=== PATIENT | female | born 1960 | race Caucasian/White ===

== ENCOUNTER 2021-06-03 11:31 | Inpatient (IN) ==
--- NOTE | 2021-06-03 11:57 | DR.SOBA ---
HPI Time Seen Time Seen by Provider: 06/03/21 11:51 Primary Care Physician Primary Care Physician: MARLON ARROYO, HPI Comment HPI Comment: PATIENT IS 60YR OLD MALE IN ER WITH INCREASING SOB AND LOW OXYGEN SATURATION TIMES 2 DAYS. Complaints Chief Complaint Doctors Comments: INCREASING SOB AND LOW OXYGEN SATURATION TIMES 2 DAYS. Chief Complaint:: " PT HAS COVID AND HAS HAD > SOB, AND LOW O2 SATS 45% AT NIGHT ,,BR Self Treatment fo Chief Complaint: IVERMENCTIN, Z-MAX, COVID-19 Coronavirus risk:travel/contact w/high risk person: No Has patient experienced Coronavirus symptoms: Yes Coronavirus symptoms experienced: Shortness of Breath Reviewed Nurses Notes Reviewed: Yes Source History Provided: Patient Mode of Arrival Mode of Arrival: Ambulatory Timing Onset of Chief Complaint: 06/01/21 Context Onset:: At Rest PE Risk Factors:: None History of:: None Currently on:: Neither Prehospital Care:: None Modifying Factors Worsens:: Exertion Improves:: Sitting Up Associated Signs and Symptoms Associated Signs and Symptoms: Cough PMH PMH Past Medical History: Yes Past Medical History: Hyperthyroidism Past Surgical History: No Family History History of Family Medical Conditions: No Social History Does patient currently use any type of tobacco product: No Have you used tobacco products in the last 12 months: No Type of Tobacco Use: None Does any household member use tobacco: No Alcohol Use: None Do you use any recreational Drugs:: No Lives Where: Home Travel Risk Coronavirus risk:travel/contact w/high risk person: No Has patient experienced Coronavirus symptoms: Yes Coronavirus symptoms experienced: Shortness of Breath Infectious screening In the last 2 months have you had wt loss of >10#?: NO Have you had fever, night sweats or hemotysis?: No Have you traveled outside the country in the last 6 months?: No Isolation: Droplet ROS Review of Systems Constitutional: No Symptoms Reported, See HPI and Fever Eyes: No Symptoms Reported and See HPI ENTM: No Symptoms Reported and See HPI Respiratoy: See HPI, Moist Cough and Short of Breath; negative Wheezing Cardiovascular: No Symptoms Reported and See HPI Gastrointestinal/Abdominal: No Symptoms Reported and See HPI Genitourinary: No Symptoms Reported and See HPI Neurological: No Symptoms Reported and See HPI Musculoskeletal: No Symptoms Reported and See HPI Integumentary: No Symptoms Reported and See HPI Hematologic/Lymphatic: No Symptoms Reported and See HPI Endocrine: No Symptoms Reported and See HPI Psychiatric: No Symptoms Reported and See HPI All Other Systems: Reviewed and Negative PE Vital Signs Vitals: Temperature 98.3 F Pulse Rate 79 Respiratory Rate 33 Blood Pressure 116/62 O2 Sat by Pulse Oximetry 92 General Limitations: No Limitations General Appearance: Alert and In No Apparent Distress Head Head Exam: Normal Inspection Eyes Eye exam: Normal Appearance ENT ENT Exam: Normal Exam Neck Neck Exam: Normal Inspection Chest Chest Inspection: Normal Inspection Respiratory Respiratory Exam: Normal Lung Sounds Bilat Respiratory Exam: Bilateral: Clear to Auscultation Cardiovascular Cardiovascular Exam: Regular Rate and Normal Rhythm Abdominal Exam Abdominal Exam: Normal Inspection, Normal Bowel Sounds and Soft Extremities Extremities Exam: Normal Inspection Back Back Exam: Normal Inspection Neurologic Neurological Exam: Alert and Oriented X3 Psychiatric Psychiatric Exam: Normal Affect and Normal Mood Skin Skin Exam: Warm, Dry, Intact and Normal Color ROR Labs Reviewed Result Diagrams: 06/03/21 12:15 06/03/21 12:15 Laboratory: WBC 3.7 X10^3/uL (3.6-10.0) 06/03/21 12:15 RBC 4.40 X10^6/uL (3.5-5.4) 06/03/21 12:15 Hgb 13.3 g/dL (12.0-16.0) 06/03/21 12:15 Hct 40.1 % (36.0-47.0) 06/03/21 12:15 MCV 91.2 fL (80.0-100.0) 06/03/21 12:15 MCH 30.3 pg (27.0-34.0) 06/03/21 12:15 MCHC 33.2 g/dL (33.0-35.0) 06/03/21 12:15 RDW 16.3 % (11.6-16.5) 06/03/21 12:15 Plt Count 218 X10^3/uL (150.0-450.0) 06/03/21 12:15 MPV 7.9 fL (7.4-11.0) 06/03/21 12:15 Neut % (Auto) 73.2 % (42.0-75.0) 06/03/21 12:15 Lymph % (Auto) 15.6 % (21.0-51.0) L 06/03/21 12:15 Valley % (Auto) 11.0 % (0.0-13.0) 06/03/21 12:15 Eos % (Auto) 0.0 % (0.9-2.9) L 06/03/21 12:15 Baso % (Auto) 0.2 % (0.2-1.0) 06/03/21 12:15 Neut # (Auto) 2.7 x10^3/uL (2.2-4.8) 06/03/21 12:15 Lymph # (Auto) 0.6 X10^3/uL (1.3-2.9) L 06/03/21 12:15 Valley # (Auto) 0.4 x10^3/uL (0.3-0.8) 06/03/21 12:15 Eos # (Auto) 0.0 x10^3/uL (0.0-0.2) 06/03/21 12:15 Baso # (Auto) 0.0 X10^3/uL (0.0-0.1) 06/03/21 12:15 Absolute Nucleated RBC 0.1 /100WBC 06/03/21 12:15 D-Dimer 0.67 ug/ml (0.0-0.57) H* 06/03/21 12:15 Sample Site Rb 06/03/21 12:00 ABG pH 7.390 (7.35-7.45) 06/03/21 12:00 ABG pCO2 62.0 mmHg (35.0-45.0) H* 06/03/21 12:00 ABG pO2 53.0 mmHg (80.0-100.0) L 06/03/21 12:00 ABG HCO3 37.5 mmol/L (22-26) H* 06/03/21 12:00 ABG O2 Saturation 87.0 % (90-100) L 06/03/21 12:00 ABG Base Excess 10.3 mmol/L (-2.0-2.0) H 06/03/21 12:00 Boubacar Test Na 06/03/21 12:00 A-a Gradient 19.0 mmHg 06/03/21 12:00 FiO2 21.0 06/03/21 12:00 Blood Gas Comments Pt [email or web address] 06/03/21 12:00 Sodium 143 mmol/L (136-145) 06/03/21 12:15 Corrected Sodium TNP 06/03/21 12:15 Potassium 4.4 mmol/L (3.5-5.1) 06/03/21 12:15 Chloride 102 mmol/L (98-107) 06/03/21 12:15 Carbon Dioxide 38.9 mmol/L (21-32) H 06/03/21 12:15 BUN 12 mg/dL (7-18) 06/03/21 12:15 Creatinine 0.85 mg/dL (0.55-1.02) 06/03/21 12:15 Est GFR (MDRD) Af Amer > 60 (>60) 06/03/21 12:15 Est GFR (MDRD) Non-Af > 60 (>60) 06/03/21 12:15 Glucose 97 mg/dL (65-99) 06/03/21 12:15 Calcium 8.5 mg/dL (8.5-10.1) 06/03/21 12:15 Corrected Calcium 9.3 mg/dL (8.5-10.1) 06/03/21 12:15 Ferritin 119 ng/mL (8-252) 06/03/21 12:15 Total Bilirubin 0.40 mg/dL (0.2-1.0) 06/03/21 12:15 AST 42 Units/L (15-37) H 06/03/21 12:15 ALT 70 Units/L (12-78) 06/03/21 12:15 Alkaline Phosphatase 95 Units/L (46-116) 06/03/21 12:15 Creatine Kinase 94 Units/L (26-192) 06/03/21 12:15 CK-MB (CK-2) 1.6 ng/mL (0-4.0) 06/03/21 12:15 CK/CKMB % Calc 1.7 % (<4) 06/03/21 12:15 Troponin I < 0.02 ng/mL (0-1.5) 06/03/21 12:15 C-Reactive Protein 16.60 mg/L (0-3.0) H 06/03/21 12:15 B-Natriuretic Peptide 108 pg/mL (0-79) H 06/03/21 12:15 Total Protein 6.7 g/dL (6.4-8.2) 06/03/21 12:15 Albumin 3.0 g/dL (3.4-5.0) L 06/03/21 12:15 Globulin 3.7 g/dL (2.5-4.5) 06/03/21 12:15 Albumin/Globulin Ratio 0.8 Ratio (1.1-2.1) L 06/03/21 12:15 SARS-CoV-2 (PCR) Positive (NEGATIVE) A 06/03/21 14:43 Influenza Type A (PCR) Negative (NEGATIVE) 06/03/21 14:43 Influenza Type B (PCR) Negative (NEGATIVE) 06/03/21 14:43 RSV (PCR) Negative (NEGATIVE) 06/03/21 14:43 SARS CoV-2 RNA Rapid ABHIJIT Negative (NEGATIVE) 06/03/21 12:11 Opioid Opioid Risk Tool Age (Malcolm box if 16-45): No History of Preadolescent Sexual Abuse: No Total: 0 Total Score Risk Category: Low Risk Copyright: Jairon VERDUZCO predicting aberrant behaviors Instructions Forms: Precautions for COVID19 [facility] Social Distancing
[2021-06-03 12:09] LABS: ABG BASE EXCESS 10.3 mmol/L (-2.0-2.0)
[2021-06-03 12:10] LABS: ABG HCO3 37.5 mmol/L (22-26)
[2021-06-03 12:43] LABS: BASOPHILS % (AUTO) 0.2 % (0.2-1.0); HEMATOCRIT 40.1 % (36.0-47.0); HEMOGLOBIN 13.3 g/dL (12.0-16.0); LYMPHOCYTES # (AUTO) 0.6 X10^3/uL (1.3-2.9); LYMPHOCYTES % (AUTO) 15.6 % (21.0-51.0); MEAN CORPUSCULAR HEMOGLOBIN 30.3 pg (27.0-34.0); MEAN CORPUSCULAR HGB CONC 33.2 g/dL (33.0-35.0); MEAN CORPUSCULAR VOLUME 91.2 fL (80.0-100.0); MEAN PLATELET VOLUME 7.9 fL (7.4-11.0); MONOCYTES # (AUTO) 0.4 x10^3/uL (0.3-0.8); NEUTROPHILS # (AUTO) 2.7 x10^3/uL (2.2-4.8); NEUTROPHILS % (AUTO) 73.2 % (42.0-75.0); PLATELET COUNT 218 X10^3/uL (150.0-450.0); RED CELL DISTRIBUTION WIDTH 16.3 % (11.6-16.5); WHITE BLOOD COUNT 3.7 X10^3/uL (3.6-10.0)
--- NOTE | 2021-06-03 12:52 | RAD ---
HISTORYCOVID, shortness of breathSTUDYChest AP portableCOMPARISONNoneFINDINGSHeart is mildly enlarged. No congestive heart failure is noted. There are some emphysematous changes in the right upper lobe. Alveolar infiltrate is present in the right lung base most consistent with pneumonia. The remainder of the lung mike appear free of infiltrates. No pleural effusions are identified. Bony thorax is unremarkable.IMPRESSIONRight lower lobe pneumoniaCardiomegaly without congestive heart failureEmphysematous changes right lung apexElectronically signed by: JORGE KUMAR (Jun 03, 2021 12:49:58)
[2021-06-03 13:02] LABS: ALANINE AMINOTRANSFERASE 70 Units/L (12-78); ALKALINE PHOSPHATASE 95 Units/L (46-116); ASPARTATE AMINO TRANSFERASE 42 Units/L (15-37); BLOOD UREA NITROGEN 12 mg/dL (7-18); CALCIUM 8.5 mg/dL (8.5-10.1); CARBON DIOXIDE 38.9 mmol/L (21-32); CHLORIDE 102 mmol/L (98-107); CKMB % 1.7 % (<4); COR CA(FOR HYPOALB) 9.3 mg/dL (8.5-10.1); CREATINE KINASE 94 Units/L (26-192); CREATINE KINASE MB 1.6 ng/mL (0-4.0); CREATININE 0.85 mg/dL (0.55-1.02); SODIUM 143 mmol/L (136-145); TOTAL PROTEIN 6.7 g/dL (6.4-8.2); TROPONIN I < 0.02 ng/mL (0-1.5); eGFR NON BLACK RACES > 60 (>60)
[2021-06-03] MEDS ORDERED: DUONEB 0.5 MG/3 MG (3 mL) NEB ONE ×2 (14:39→15:01)
[2021-06-03] MEDS ORDERED: SOLU-Medrol 125 MG VIAL IVP ONE (14:39)
[2021-06-03] MEDS ORDERED: ZOSYN VIAL 3.375 GRAMS 3.375 G in NS 100 ML IV + SPIKE MINIBAG* 100 ML IV ONE (14:41)
[2021-06-03] MEDS ORDERED: ZOSYN VIAL 3.375 GRAMS IV ONE (14:51)
[2021-06-03] MEDS ORDERED: NS 100 ML IV + SPIKE MINIBAG* 100 ML IV ONE (14:52)
--- NOTE | 2021-06-03 16:45 | CT ---
CT angiogram chest with contrastIndication: Dyspnea and hypoxiaTECHNIQUEHelical images through the chest after IV contrast. Coronal and sagittal reformats provided. MIP images provided.COMPARISONNone availableFINDINGSLimited images through the upper abdomen show no acute abnormality. Review of bone windows demonstrate no acute osseous abnormalityChest: There patchy ground-glass opacities in the periphery of the lung, concerning for COVID-19 viral pneumonitis. COPD with a large right apical bulla is noted. No pneumothorax or effusion seen. There is more focal consolidation in the right middle lobe, possibly reflecting superimposed bacterial pneumonia. Chest wall soft tissues show no acute abnormality. Aortic arch and branch vessels show few calcifications.Pulmonary artery bolus timing is adequate without central or segmental pulmonary artery filling defect identified.IMPRESSION1. Pulmonary changes of viral pneumonitis, likely COVID-19.2. Pre-existing COPD, and also consolidation in the right middle lobe, possibly reflecting chronic change versus superimposed bacterial pneumonia3. No pulmonary embolusElectronically signed by: JULIO ZAFAR (Jun 03, 2021 16:42:49)
[2021-06-03] MEDS ORDERED: ACCUNEB 1.25 MG NEBULE NEB PRN (17:48)
[2021-06-03] MEDS ORDERED: HumuLIN R SUBCUT PRN (17:52)
[2021-06-03] MEDS ORDERED: PHARMACY CONSULT - IVERMECTIN XX SCH (18:00)
[2021-06-03] MEDS ORDERED: REMDESIVIR 200 MG in NS 250 ML IV 250 ML IV ONE (18:30)
[2021-06-03] MEDS ORDERED: BROVANA ONE (19:13)
[2021-06-03] MEDS ORDERED: PULMICORT NEB TX 0.5 MG NEB ONE (19:13)
[2021-06-03] MEDS: ACCUNEB 1.25 MG NEBULE NEB SCH (20:30)
[2021-06-03] MEDS: PULMICORT NEB TX 0.5 MG NEB SCH (20:30)
[2021-06-03] MEDS ORDERED: LOVENOX INJ 30 MG SYR SC SCH (21:00)
[2021-06-03] MEDS ORDERED: BROVANA IN SCH (21:00)
[2021-06-03] MEDS ORDERED: NS 1/2 1000 ML IV 1,000 ML IV ONE (21:01)
[2021-06-03] MEDS: NS 1/2 1000 ML IV 1,000 ML IV SCH (21:23)
[2021-06-03] MEDS: PEPCID TAB 20 MG PO SCH (21:24)
[2021-06-03] MEDS: MELATONIN PO SCH (21:24)
[2021-06-03] MEDS: LIPITOR TAB 80 MG PO SCH (21:24)
[2021-06-03] MEDS: TESSALON PERLES PO SCH (21:24)
[2021-06-03] MEDS: SINGULAIR TAB 10 MG PO SCH (21:24)
[2021-06-03] MEDS: SOLU-Medrol 40 MG VIAL IVP SCH (21:25)
[2021-06-03] MEDS: LEVAQUIN PREMIX IV 500 MG 500 MG/100 ML BAG IV SCH (21:26)
[2021-06-03] MEDS: PROTONIX TAB 40 MG PO SCH (21:26)
[2021-06-03] MEDS: ASCORBIC ACID INJ MULTI-DOSE VIAL 1,500 MG in NS 50 ML IV 50 ML IV SCH (21:26)
[2021-06-03] MEDS: THIAMINE HCL INJ IVP SCH (21:26)
[2021-06-03] MEDS: SNACK - Diabetic Appropriate PO SCH (21:27)
[2021-06-04] MEDS: ASCORBIC ACID INJ MULTI-DOSE VIAL 1,500 MG in NS 50 ML IV 50 ML IV SCH ×4 (02:02→20:50)
[2021-06-04] MEDS: TUSSIONEX PENNKINETIC SUSP PO PRN ×2 (02:02→18:24)
[2021-06-04] MEDS: TESSALON PERLES PO SCH ×3 (05:25→21:00)
[2021-06-04] MEDS: SOLU-Medrol 40 MG VIAL IVP SCH ×3 (05:26→21:00)
[2021-06-04 05:55] LABS: ABG BASE EXCESS 10.9 mmol/L (-2.0-2.0)
[2021-06-04 05:56] LABS: ABG ALLEN TEST POS; ABG HCO3 38.5 mmol/L (22-26)
[2021-06-04] MEDS: ACCUNEB 1.25 MG NEBULE NEB SCH ×3 (05:57→19:54)
[2021-06-04] MEDS: NS 1/2 1000 ML IV 1,000 ML IV SCH ×3 (06:20→20:51)
[2021-06-04 06:29] LABS: BASOPHILS % (AUTO) 0.3 % (0.2-1.0); HEMATOCRIT 38.5 % (36.0-47.0); HEMOGLOBIN 12.6 g/dL (12.0-16.0); LYMPHOCYTES # (AUTO) 0.4 X10^3/uL (1.3-2.9); LYMPHOCYTES % (AUTO) 11.7 % (21.0-51.0); MEAN CORPUSCULAR HGB CONC 32.9 g/dL (33.0-35.0); MEAN CORPUSCULAR VOLUME 91.4 fL (80.0-100.0); MEAN PLATELET VOLUME 7.9 fL (7.4-11.0); MONOCYTES # (AUTO) 0.2 x10^3/uL (0.3-0.8); MONOCYTES % (AUTO) 4.9 % (0.0-13.0); NEUTROPHILS # (AUTO) 2.7 x10^3/uL (2.2-4.8); NEUTROPHILS % (AUTO) 83.1 % (42.0-75.0); PLATELET COUNT 248 X10^3/uL (150.0-450.0); RED BLOOD COUNT 4.21 X10^6/uL (3.5-5.4); RED CELL DISTRIBUTION WIDTH 15.9 % (11.6-16.5); WHITE BLOOD COUNT 3.3 X10^3/uL (3.6-10.0)
[2021-06-04 06:50] LABS: ALANINE AMINOTRANSFERASE 65 Units/L (12-78); ALBUMIN 2.6 g/dL (3.4-5.0); ALKALINE PHOSPHATASE 84 Units/L (46-116); ASPARTATE AMINO TRANSFERASE 29 Units/L (15-37); BLOOD UREA NITROGEN 13 mg/dL (7-18); CALCIUM 8.3 mg/dL (8.5-10.1); CARBON DIOXIDE 36.5 mmol/L (21-32); CHLORIDE 102 mmol/L (98-107); COR CA(FOR HYPOALB) 9.4 mg/dL (8.5-10.1); COR NA(FOR HYPERGLY) 143 mmol/L (136-145); CREATININE 0.91 mg/dL (0.55-1.02); SODIUM 141 mmol/L (136-145); TOTAL PROTEIN 6.1 g/dL (6.4-8.2); eGFR NON BLACK RACES > 60 (>60)
--- NOTE | 2021-06-04 07:55 | RAD ---
HISTORYSOBSTUDYCHEST, 1 [id number]/07/2021FINDINGSAbnormal opacity in the right middle lobe could be pneumonia. This may have improved slightly since the prior study. Large bleed or bleb noted in the upper right lung.No pneumothorax or significant effusion.The heart size is magnified.Bones are unremarkable.IMPRESSION1. Improved right middle lobe pneumoniaElectronically signed by: Carlos Suarez (Jun 04, 2021 07:53:31)
[2021-06-04] MEDS: DIFLUCAN PO SCH (09:09)
[2021-06-04] MEDS: IVERMECTIN PO SCH (09:09)
[2021-06-04] MEDS: PROTONIX TAB 40 MG PO SCH ×2 (09:09→20:48)
[2021-06-04] MEDS: PEPCID TAB 20 MG PO SCH ×2 (09:09→20:49)
[2021-06-04] MEDS: LOVENOX INJ 40 MG SYR SC SCH ×2 (09:09→20:58)
[2021-06-04] MEDS: REMDESIVIR 100 MG in NS 250 ML IV 250 ML IV SCH (09:10)
[2021-06-04] MEDS: ZINC SULFATE PO SCH (09:11)
[2021-06-04] MEDS: ZyrTEC TAB 10 MG PO SCH (09:11)
[2021-06-04] MEDS: THIAMINE HCL INJ IVP SCH ×2 (09:11→20:48)
[2021-06-04] MEDS: VITAMIN D3 125 mcg (5,000 UNITS) PO SCH (09:11)
[2021-06-04] MEDS: PULMICORT NEB TX 0.5 MG NEB SCH ×2 (09:45→19:54)
[2021-06-04 11:36] VITALS: BMI 43.4
[2021-06-04] MEDS: ROBITUSSIN DM PO PRN (13:17)
--- NOTE | 2021-06-04 16:00 | DR.H&P ---
H&P - History & Physical for Day of: H&P Date: 06/03/21 - Chief Complaint Chief Complaint: COUGH, SOB, LOW OXYGEN SATURATIONS - History of Present Illness History of Present Illness: IS A 60 YEAR OLD WHITE FEMALE. SHE IS NOT KNOWN TO OUR PRACTICE. HER PCP IS MARLON ARROYO. SHE PRESENTED TO THE ER WITH COMPLAINTS OF A NON-PRODUCTIVE COUGH, SHORTNESS OF BREATH, AND LOW OXYGEN SATURATIONS. SHE REPORTS BEING COVID POSITIVE. PATIENT REPORTS THAT HER SATURATIONS DROPPED LOW 45% THROUGHOUT THE NIGHT. SHE HAS TAKEN IVERMECTIN AND A Z-PACK AT HOME WITHOUT IMPROVEMENT IN SYMPTOMS. HER PMH INCLUDES: HYPERTHYROIDISM. AUSCULTATION OF BILATERAL LUNG WATKINS REVEALED SCATTERED RHONCHI. ON ARRIVAL TO THE ER, VITALS WERE 98.3-70-20-75%-144/78. SHE WAS PLACED ON OXYGEN VIA NASAL CANNULA AT 2LPM. SATURATIONS INCREASED TO 98%. LABS WERE OBTAINED. ABNORMAL LAB VALUES INCLUDED THE FOLLOWING: CARBON DIXOIDE 38.9, AST 42, CRP 16.60, BNP 108, ALBUMIN 3.0. COVID-19 POSITIVE. AN ABG WAS OBTAINED AND REVEALED: PH 7.390, PC02 62, P02 53, HC03 37.5, 02 SAT 87, BASE EXCESS 10.3, A-A GRADIENT 19, FI02 21.0. BLOOD CULTURES WERE SET UP. CHEST XRAY WAS OBTAINED AND REVEALED: Right lower lobe pneumonia. Cardiomegaly without congestive heart failure. Emphysematous changes right lung apex. CHEST CTA OBTAINED AND REVEALED: 1. Pulmonary changes of viral pneumonitis, likely COVID-19. 2. Pre-existing COPD, and also consolidation in the right middle lobe, possibly reflecting chronic change versus superimposed bacterial pneumonia 3. No pulmonary embolus. EKG REVEALED: SINUS RHYTHM WITH HR 58. IN THE ER, SHE WAS GIVEN A DUONEB X 1, SOLU-MEDROL 125MG IV X 1, ZOSYN 3.375G IV X 1, REMDESIVIR 200MG IV X 1, LOVENOX 30MG SC X 1. SHE WAS ADMITTED TO THE HOSPITAL FOR FURTHER EVALUATION AND TREATMENT OF PNEUMONIA DUE TO COVID-19 AND HYPOXIA. SHE WAS STARTED ON NS AT 50 ML/HR, LEVAQUIN 500MG IV HS, REMDESIVIR 100MG IV DAILY, ASCORBIC ACID 1500MG IV Q6H, ALBUTEROL NEBS TID, PULMICORT NEBS BID, SOLU-MEDROL 80MG IV Q8H, LOVENOX 40MG SC Q12H, LIPITOR 80MG PO HS, TESSALON PERLES 200MG PO TID, CETIRIZINE 10MG PO DAILY, IVERMECTIN, DIFLUCAN 100MG PO DAILY, PEPCID 20MG PO BID, ROBITUSSIN DM 10ML PO QID PRN, HUMULIN R SLIDING SCALE, SINGULAIR 10MG PO HS, PROTONIX 40MG PO BID, THIAMINE 200MG IV BID, AND ZINC SULFATE 220MG PO BID. OTHERWISE, WE PLAN TO FOLLOW UP WITH AM LABS AND CHEST XRAY AND CONTINUE TO MONITOR. WE WILL ALSO OBTAIN AN ECHO. TIME SPENT ON CLINICAL ASSESSMENT, REVIEWING LABS AND IMAGING, DECISION MAKING, AND DOCUMENTATION GREATER THAN 75 MINUTES. - Past Medical History Past Medical History: Hyperthyroidism - Past Surgical History Surgical History: Other - Family History Family Medical History: Cancer - Social History Does patient currently use any type of tobacco product: Yes Have you used tobacco products in the last 12 months: Yes Type of Tobacco Use: Cigarettes How many years tobacco product used: 46 Does any household member use tobacco: Yes Alcohol Use: None Drug Use: None - Medications Home Medications: No Known Drug Allergies Allergy (Verified 06/03/21 11:36) CONTINUE taking the following medications albuterol sulfate 1 inh INHALATION PRN PRN 06/03/21 [History] alprazolam 0.5 mg PO BID PRN 06/03/21 [History] azithromycin 250 mg PO DAILY 06/03/21 [History] escitalopram oxalate 20 mg PO DAILY 06/03/21 [History] estradiol [Estrace] 1 mg PO DAILY 06/03/21 [History] furosemide 40 mg PO DAILY 06/03/21 [History] ibuprofen 800 mg PO PRN PRN 06/03/21 [History] levothyroxine 25 mcg PO DAILY 06/03/21 [History] meclizine 25 mg PO PRN PRN 06/03/21 [History] metformin 500 mg PO DAILY 06/03/21 [History] montelukast 10 mg PO DAILY 06/03/21 [History] omeprazole 40 mg PO DAILY 06/03/21 [History] ondansetron HCl 4 mg PO PRN PRN 06/03/21 [History] ondansetron HCl 4 mg PO Q6H 06/03/21 [History] phentermine 37.5 mg PO DAILY 06/03/21 [History] potassium chloride 20 meq PO DAILY 06/03/21 [History] - Review of Systems Constitutional: Weakness Eyes: No Symptoms Reported ENT: No Symptoms Reported Respiratory: See HPI, Cough, Shortness of Breath, SOB with Excertion Cardiovascular: No Symptoms Reported Gastrointestinal: No Symptoms Reported Genitourinary: No Symptoms Reported Musculoskeletal: No Symptoms Reported Skin: No Symptoms Reported Neurological: Weakness - Physical Exam Vital Signs: Temperature 97.9 F Pulse Rate [Left Brachial] 76 Pulse Rate 75 Respiratory Rate 22 Blood Pressure [Left Arm] 128/68 Blood Pressure 116/62 O2 Sat by Pulse Oximetry 89 Oriented: Normal Eyes: Normal Ear: Normal Nose: Normal Throat: Normal Respiratory: Diminished Throughout Cardiovascular: Normal : Normal Auscultation: Bowel Sounds: Normal Palpation: Normal Tenderness: Normal Skin: Decreased Turgur Musculoskeletal: Normal Psychiatric: Normal Mood Description: Calm Affect: Normal Speech Pattern: Clear - Assessment/Plan (1) Pneumonia due to COVID-19 virus Status: Acute Plan: ADMIT, SUPPLEMENTAL OXYGEN, NS AT 50 ML/HR, LEVAQUIN 500MG IV HS, REMDESIVIR 100MG IV DAILY, ASCORBIC ACID 1500MG IV Q6H, ALBUTEROL NEBS TID, PULMICORT NEBS BID, SOLU-MEDROL 80MG IV Q8H, LOVENOX 40MG SC Q12H, LIPITOR 80MG PO HS, TESSALON PERLES 200MG PO TID, CETIRIZINE 10MG PO DAILY, IVERMECTIN, DIFLUCAN 100MG PO DAILY, PEPCID 20MG PO BID, ROBITUSSIN DM 10ML PO QID PRN, HUMULIN R SLIDING SCALE, SINGULAIR 10MG PO HS, PROTONIX 40MG PO BID, THIAMINE 200MG IV BID, AND ZINC SULFATE 220MG PO BID (2) Hypoxia Status: Acute - Allergies Allergies/Adverse Reactions: Allergies Allergy/AdvReac Type Severity Reaction Status Date / Time No Known Drug Allergies Allergy Verified 06/03/21 11:36
[2021-06-04] MEDS ORDERED: NS 1/2 1000 ML IV 1,000 ML IV ONE (17:24)
[2021-06-04] MEDS ORDERED: ZOFRAN TAB 4 MG PO PRN (17:41)
[2021-06-04] MEDS ORDERED: ANTIVERT TAB 25 MG PO PRN (17:41)
[2021-06-04] MEDS ORDERED: PATIENT'S HOME MEDICATION (Alprazolam 0.5 mg tablet) PO PRN (17:41)
[2021-06-04] MEDS ORDERED: GLUCOPHAGE ONE (17:51)
[2021-06-04] MEDS ORDERED: XANAX PO PRN (17:52)
[2021-06-04] MEDS: K-DUR TAB 20 MEQ PO SCH (17:54)
[2021-06-04] MEDS: SYNTHROID 25 mcg TAB PO SCH (17:54)
[2021-06-04] MEDS: ESTRACE PO SCH (17:54)
[2021-06-04] MEDS: GLUCOPHAGE PO SCH (17:54)
[2021-06-04] MEDS ORDERED: LEXAPRO ONE (17:55)
[2021-06-04] MEDS: LEXAPRO PO SCH (17:58)
[2021-06-04] MEDS: SINGULAIR TAB 10 MG PO SCH ×2 (20:48→20:49)
[2021-06-04] MEDS: LIPITOR TAB 80 MG PO SCH (20:48)
[2021-06-04] MEDS: MELATONIN PO SCH (20:48)
[2021-06-04] MEDS: LEVAQUIN PREMIX IV 500 MG 500 MG/100 ML BAG IV SCH (20:49)
[2021-06-04] MEDS: SNACK - Diabetic Appropriate PO SCH (20:51)
[2021-06-05] MEDS: ASCORBIC ACID INJ MULTI-DOSE VIAL 1,500 MG in NS 50 ML IV 50 ML IV SCH ×4 (02:14→20:14)
[2021-06-05] MEDS: TUSSIONEX PENNKINETIC SUSP PO PRN (03:56)
[2021-06-05] MEDS: SOLU-Medrol 40 MG VIAL IVP SCH ×3 (05:17→21:04)
[2021-06-05] MEDS: TESSALON PERLES PO SCH ×3 (05:18→21:04)
[2021-06-05] MEDS: ACCUNEB 1.25 MG NEBULE NEB SCH ×3 (05:30→20:09)
[2021-06-05 05:33] LABS: ABG BASE EXCESS 8.6 mmol/L (-2.0-2.0)
[2021-06-05 05:35] LABS: ABG ALLEN TEST POS; ABG HCO3 36.7 mmol/L (22-26)
[2021-06-05] MEDS ORDERED: NS 1/2 1000 ML IV 1,000 ML IV ONE ×2 (06:22→19:46)
[2021-06-05 06:25] LABS: BASOPHILS % (AUTO) 0.1 % (0.2-1.0); HEMATOCRIT 40.1 % (36.0-47.0); HEMOGLOBIN 13.4 g/dL (12.0-16.0); LYMPHOCYTES # (AUTO) 0.4 X10^3/uL (1.3-2.9); LYMPHOCYTES % (AUTO) 6.6 % (21.0-51.0); MEAN CORPUSCULAR HEMOGLOBIN 30.7 pg (27.0-34.0); MEAN CORPUSCULAR HGB CONC 33.4 g/dL (33.0-35.0); MEAN CORPUSCULAR VOLUME 91.7 fL (80.0-100.0); MEAN PLATELET VOLUME 7.9 fL (7.4-11.0); MONOCYTES # (AUTO) 0.2 x10^3/uL (0.3-0.8); MONOCYTES % (AUTO) 4.1 % (0.0-13.0); NEUTROPHILS # (AUTO) 5.4 x10^3/uL (2.2-4.8); NEUTROPHILS % (AUTO) 89.2 % (42.0-75.0); PLATELET COUNT 274 X10^3/uL (150.0-450.0); RED BLOOD COUNT 4.37 X10^6/uL (3.5-5.4); RED CELL DISTRIBUTION WIDTH 16.5 % (11.6-16.5)
[2021-06-05] MEDS: NS 1/2 1000 ML IV 1,000 ML IV SCH ×3 (06:28→23:15)
[2021-06-05 06:45] LABS: ALANINE AMINOTRANSFERASE 56 Units/L (12-78); ALBUMIN 2.9 g/dL (3.4-5.0); ALKALINE PHOSPHATASE 84 Units/L (46-116); ASPARTATE AMINO TRANSFERASE 17 Units/L (15-37); BLOOD UREA NITROGEN 20 mg/dL (7-18); CALCIUM 8.7 mg/dL (8.5-10.1); CARBON DIOXIDE 36.2 mmol/L (21-32); CHLORIDE 105 mmol/L (98-107); COR CA(FOR HYPOALB) 9.6 mg/dL (8.5-10.1); COR NA(FOR HYPERGLY) 145 mmol/L (136-145); CREATININE 1.06 mg/dL (0.55-1.02); SODIUM 143 mmol/L (136-145); TOTAL PROTEIN 6.4 g/dL (6.4-8.2); eGFR NON BLACK RACES 57 (>60)
[2021-06-05] MEDS ORDERED: LEXAPRO ONE (07:53)
[2021-06-05] MEDS ORDERED: GLUCOPHAGE ONE (07:53)
--- NOTE | 2021-06-05 08:05 | RAD ---
HISTORYSOBSTUDYCHEST, 1 [id number]/08/2021FINDINGSVague opacity in the right lung base is unchanged compatible with middle lobe pneumonia as seen on the CT 06/03/2021.Large bullae or bleb in the right upper lung.No pleural effusion or pneumothorax.Heart size is normal.Bones are unremarkable.IMPRESSION1. Unchanged pneumoniaElectronically signed by: Carlos Suarez (Jun 05, 2021 08:03:10)
[2021-06-05] MEDS: DIFLUCAN PO SCH (08:45)
[2021-06-05] MEDS: K-DUR TAB 20 MEQ PO SCH (08:55)
[2021-06-05] MEDS: ESTRACE PO SCH (08:55)
[2021-06-05] MEDS: GLUCOPHAGE PO SCH (08:55)
[2021-06-05] MEDS: IVERMECTIN PO SCH (08:55)
[2021-06-05] MEDS: PROTONIX TAB 40 MG PO SCH ×2 (08:56→20:15)
[2021-06-05] MEDS: LEXAPRO PO SCH (08:56)
[2021-06-05] MEDS: PEPCID TAB 20 MG PO SCH ×2 (08:56→20:14)
[2021-06-05] MEDS: LASIX PO SCH (08:56)
[2021-06-05] MEDS: SYNTHROID 25 mcg TAB PO SCH (08:57)
[2021-06-05] MEDS: ZINC SULFATE PO SCH (08:57)
[2021-06-05] MEDS: THIAMINE HCL INJ IVP SCH ×2 (08:57→20:15)
[2021-06-05] MEDS: ZyrTEC TAB 10 MG PO SCH (08:57)
[2021-06-05] MEDS: VITAMIN D3 125 mcg (5,000 UNITS) PO SCH (08:57)
[2021-06-05] MEDS: PULMICORT NEB TX 0.5 MG NEB SCH ×2 (09:05→20:09)
[2021-06-05] MEDS: LOVENOX INJ 40 MG SYR SC SCH ×2 (09:10→20:14)
[2021-06-05] MEDS: ROBITUSSIN DM PO PRN (09:26)
[2021-06-05] MEDS: REMDESIVIR 100 MG in NS 250 ML IV 250 ML IV SCH (09:33)
[2021-06-05] MEDS: MELATONIN PO SCH (20:14)
[2021-06-05] MEDS: LIPITOR TAB 80 MG PO SCH (20:14)
[2021-06-05] MEDS: LEVAQUIN PREMIX IV 500 MG 500 MG/100 ML BAG IV SCH (20:14)
[2021-06-05] MEDS: SINGULAIR TAB 10 MG PO SCH (20:15)
[2021-06-05] MEDS: SNACK - Diabetic Appropriate PO SCH (20:23)
[2021-06-06] MEDS: ASCORBIC ACID INJ MULTI-DOSE VIAL 1,500 MG in NS 50 ML IV 50 ML IV SCH ×4 (02:32→20:51)
[2021-06-06 05:31] LABS: ABG BASE EXCESS 13.6 mmol/L (-2.0-2.0)
[2021-06-06 05:32] LABS: ABG ALLEN TEST POS; ABG HCO3 40.5 mmol/L (22-26)
[2021-06-06] MEDS: SOLU-Medrol 40 MG VIAL IVP SCH ×3 (05:40→21:00)
[2021-06-06] MEDS: TESSALON PERLES PO SCH ×3 (05:40→21:03)
[2021-06-06 06:14] LABS: BASOPHILS % (AUTO) 0.1 % (0.2-1.0); HEMATOCRIT 37.3 % (36.0-47.0); HEMOGLOBIN 12.4 g/dL (12.0-16.0); LYMPHOCYTES # (AUTO) 0.4 X10^3/uL (1.3-2.9); LYMPHOCYTES % (AUTO) 5.8 % (21.0-51.0); MEAN CORPUSCULAR HEMOGLOBIN 30.3 pg (27.0-34.0); MEAN CORPUSCULAR HGB CONC 33.3 g/dL (33.0-35.0); MEAN CORPUSCULAR VOLUME 91.1 fL (80.0-100.0); MEAN PLATELET VOLUME 7.6 fL (7.4-11.0); MONOCYTES # (AUTO) 0.3 x10^3/uL (0.3-0.8); MONOCYTES % (AUTO) 4.7 % (0.0-13.0); NEUTROPHILS # (AUTO) 5.7 x10^3/uL (2.2-4.8); NEUTROPHILS % (AUTO) 89.4 % (42.0-75.0); PLATELET COUNT 264 X10^3/uL (150.0-450.0); RED BLOOD COUNT 4.09 X10^6/uL (3.5-5.4); RED CELL DISTRIBUTION WIDTH 16.2 % (11.6-16.5); WHITE BLOOD COUNT 6.4 X10^3/uL (3.6-10.0)
[2021-06-06 06:38] LABS: ALANINE AMINOTRANSFERASE 39 Units/L (12-78); ALBUMIN 2.6 g/dL (3.4-5.0); ALKALINE PHOSPHATASE 69 Units/L (46-116); ASPARTATE AMINO TRANSFERASE 12 Units/L (15-37); BLOOD UREA NITROGEN 21 mg/dL (7-18); CALCIUM 8.2 mg/dL (8.5-10.1); CARBON DIOXIDE 35.7 mmol/L (21-32); CHLORIDE 102 mmol/L (98-107); COR CA(FOR HYPOALB) 9.3 mg/dL (8.5-10.1); COR NA(FOR HYPERGLY) 144 mmol/L (136-145); CREATININE 1.04 mg/dL (0.55-1.02); SODIUM 140 mmol/L (136-145); TOTAL PROTEIN 5.7 g/dL (6.4-8.2); eGFR NON BLACK RACES 58 (>60)
[2021-06-06] MEDS: ACCUNEB 1.25 MG NEBULE NEB SCH ×3 (06:40→20:18)
--- NOTE | 2021-06-06 08:08 | RAD ---
HISTORYSOBSTUDYCHEST, 1 [id number]/09/2021FINDINGSThe subtle areas of ground-glass opacity representing bronchopneumonia seen on the CTA chest 06/03/2021 are not readily apparent by radiography.But the consolidation that was noted in the right middle lobe on the chest CT is identified. This could be atelectasis or pneumonia and has improved since yesterday.No pleural effusion or pneumothorax. Large bullae or bleb noted in the upper right chest, unchanged.The heart size is magnified.Bones are unremarkable.IMPRESSION1. Improved right middle lobe atelectasis or pneumoniaElectronically signed by: Carlos Suarez (Jun 06, 2021 08:05:57)
[2021-06-06] MEDS: PULMICORT NEB TX 0.5 MG NEB SCH ×2 (08:25→20:18)
[2021-06-06] MEDS ORDERED: LEXAPRO ONE (08:39)
[2021-06-06] MEDS ORDERED: GLUCOPHAGE ONE (08:39)
[2021-06-06] MEDS: DIFLUCAN PO SCH (09:41)
[2021-06-06] MEDS: ESTRACE PO SCH (09:42)
[2021-06-06] MEDS: K-DUR TAB 20 MEQ PO SCH (09:42)
[2021-06-06] MEDS: GLUCOPHAGE PO SCH (09:42)
[2021-06-06] MEDS: LASIX PO SCH (09:43)
[2021-06-06] MEDS: LEXAPRO PO SCH (09:44)
[2021-06-06] MEDS: IVERMECTIN PO SCH (09:44)
[2021-06-06] MEDS: LOVENOX INJ 40 MG SYR SC SCH ×2 (09:44→20:44)
[2021-06-06] MEDS: PROTONIX TAB 40 MG PO SCH ×2 (09:45→20:49)
[2021-06-06] MEDS: SYNTHROID 25 mcg TAB PO SCH (09:45)
[2021-06-06] MEDS: THIAMINE HCL INJ IVP SCH ×2 (09:45→20:49)
[2021-06-06] MEDS: PEPCID TAB 20 MG PO SCH ×2 (09:45→20:48)
[2021-06-06] MEDS: ZINC SULFATE PO SCH (09:46)
[2021-06-06] MEDS: VITAMIN D3 125 mcg (5,000 UNITS) PO SCH (09:46)
[2021-06-06] MEDS: ZyrTEC TAB 10 MG PO SCH (09:46)
[2021-06-06] MEDS: NS 1/2 1000 ML IV 1,000 ML IV SCH ×3 (11:11→13:37)
[2021-06-06] MEDS: REMDESIVIR 100 MG in NS 250 ML IV 250 ML IV SCH (11:12)
[2021-06-06] MEDS ORDERED: MILK OF MAGNESIA ONE (13:32)
[2021-06-06] MEDS ORDERED: COLACE CAP 100 MG PO ONE (13:32)
[2021-06-06] MEDS ORDERED: NS 1/2 1000 ML IV 1,000 ML IV ONE (13:33)
[2021-06-06] MEDS: COLACE CAP 100 MG PO SCH ×2 (13:39→20:49)
[2021-06-06] MEDS: MILK OF MAGNESIA PO SCH (13:40)
--- NOTE | 2021-06-06 18:35 | PCM.PROG ---
Progress Note - Progress Note for Day of Date of Exam: 06/05/21 - Subjective Subjective: MS. LOMAX WAS ADMITTED FOR TREATMENT OF COVID PNEUMONIA AND HYPOXIA. TODAY, SHE IS ALERT AND ORIENTED, LYING IN THE BED ON MORNING ROUNDS. SHE IS CURRENTLY OXYGEN VIA NASAL CANNULA AT 3 LITERS/MINUTE. SHE CONTINUES WITH COMPLAINTS OF SHORTNESS OF BREATH AND WEAKNESS TODAY. SHORTNESS OF BREATH AND COUGH SLIGHTLY INCREASED. HER SATURATIONS HAVE BEEN 90-94% THIS MORNING AND THROUGHOUT THE NIGHT. ON EXAMINATION, HEART IS REGULAR IN RATE AND RHYTHM. BILATERAL LUNGS ARE NOTED WITH DIMINISHED LUNG SOUNDS THROUGHOUT. ABDOMEN IS ROUND, SOFT, AND NON-TENDER WITH NORMAL BOWEL SOUNDS NOTED IN ALL QUADRANTS. HIS VITALS THIS MORNING ARE: 98.1-70-22-92%-124/62. LABS WERE OBTAINED. ABNORMAL LAB VALUES INCLUDE THE FOLLOWING: POTASSIUM 5.2, CARBON DIOXIDE 36.2, BUN 20, CREATININE 1.06, GLUCOSE 164, CRP 5.50, BNP 87.7, ALBUMIN 2.9. BLOOD CULTURES ARE PENDING. ABG REVEALED: PH 7.430, PC02 42, P02 49, HC03 27.9, 02 SAT 85, BASE EXCESS 3.2, A-A GRADIENT 562, FI02 93. BLOOD CULTURES ARE PENDING. A CHEST XRAY WAS OBTAINED AND REVEALED: 1. Unchanged Pneumonia. SHE IS CURRENTLY RECEIVING NS AT 50 ML/HR, LEVAQUIN 500MG IV HS, REMDESIVIR 100MG IV DAILY, ASCORBIC ACID 1500MG IV Q6H, ALBUTEROL NEBS TID, PULMICORT NEBS BID, SOLU-MEDROL 80MG IV Q8H, LOVENOX 40MG SC Q12H, LIPITOR 80MG PO HS, TESSALON PERLES 200MG PO TID, CETIRIZINE 10MG PO DAILY, IVERMECTIN, DIFLUCAN 100MG PO DAILY, PEPCID 20MG PO BID, ROBITUSSIN DM 10ML PO QID PRN, HUMULIN R SLIDING SCALE, SINGULAIR 10MG PO HS, PROTONIX 40MG PO BID, THIAMINE 200MG IV BID, AND ZINC SULFATE 220MG PO BID. WE WILL CONTINUE WITH CURRENT PLAN OF CARE TODAY AND ATTEMPT TO WEAN DOWN OXYGEN SHE TOLERATES IT. OTHERWISE, WE WILL FOLLOW UP WITH AM LABS, CHEST XRAY, ABG, AND CONTINUE TO MONITOR. TIME SPENT ON CLINICAL ASSESSMENT, REVIEWING LABS AND IMAGING, DECISION MAKING, AND DOCUMENTATION GREATER THAN 45 MINUTES. - Past Medical Family Social History Past Med/Fam/Surg Hx: No changes since H&P Allergies: Allergies No Known Drug Allergies Allergy (Verified 06/03/21 11:36) - Review of Systems ROS: No change since H&P - Vital Signs and I&O's Vital Signs: Temperature 98.6 F Pulse Rate [Left Brachial] 70 Pulse Rate 89 Respiratory Rate 20 Blood Pressure [Left Arm] 109/67 Blood Pressure 116/62 O2 Sat by Pulse Oximetry 95 Intake and Output: Intake & Output 06/04/21 06/05/21 06/06/21 06/07/21 11:59 11:59 11:59 11:59 Intake Total 1795 / 1795 4799 / 4799 5458 / 5458 2065 Output Total Balance 1790 / 1790 4799 / 4799 5458 / 5458 2065 - Physical Exam Oriented: Normal Eyes: Normal Ear: Normal Nose: Normal Throat: Normal Cardiovascular: Normal : Normal Auscultation: Bowel Sounds: Normal Palpation: Normal Tenderness: Normal Skin: Decreased Turgur Musculoskeletal: Normal Psychiatric: Normal Mood Description: Calm Affect: Normal Speech Pattern: Clear, Appropriate - Laboratory and Diagnostics Result Diagrams: 06/06/21 05:29 06/06/21 05:29 Labs: 06/03/21 14:57 Blood Blood Culture - Preliminary 06/03/21 14:50 Blood Blood Culture - Preliminary Laboratory WBC 6.4 X10^3/uL (3.6-10.0) 06/06/21 05:29 RBC 4.09 X10^6/uL (3.5-5.4) 06/06/21 05:29 Hgb 12.4 g/dL (12.0-16.0) 06/06/21 05:29 Hct 37.3 % (36.0-47.0) 06/06/21 05:29 MCV 91.1 fL (80.0-100.0) 06/06/21 05:29 MCH 30.3 pg (27.0-34.0) 06/06/21 05:29 MCHC 33.3 g/dL (33.0-35.0) 06/06/21 05:29 RDW 16.2 % (11.6-16.5) 06/06/21 05:29 Plt Count 264 X10^3/uL (150.0-450.0) 06/06/21 05:29 MPV 7.6 fL (7.4-11.0) 06/06/21 05:29 Neut % (Auto) 89.4 % (42.0-75.0) H 06/06/21 05:29 Lymph % (Auto) 5.8 % (21.0-51.0) L 06/06/21 05:29 Chambers % (Auto) 4.7 % (0.0-13.0) 06/06/21 05:29 Eos % (Auto) 0.0 % (0.9-2.9) L 06/06/21 05:29 Baso % (Auto) 0.1 % (0.2-1.0) L 06/06/21 05:29 Neut # (Auto) 5.7 x10^3/uL (2.2-4.8) H 06/06/21 05:29 Lymph # (Auto) 0.4 X10^3/uL (1.3-2.9) L 06/06/21 05:29 Chambers # (Auto) 0.3 x10^3/uL (0.3-0.8) 06/06/21 05:29 Eos # (Auto) 0.0 x10^3/uL (0.0-0.2) 06/06/21 05:29 Baso # (Auto) 0.0 X10^3/uL (0.0-0.1) 06/06/21 05:29 Absolute Nucleated RBC 0.1 /100WBC 06/06/21 05:29 D-Dimer 0.31 ug/ml (0.0-0.57) 06/06/21 05:29 Sample Site Lrad 06/06/21 05:25 ABG pH 7.430 (7.35-7.45) 06/06/21 05:25 ABG pCO2 61.0 mmHg (35.0-45.0) H* 06/06/21 05:25 ABG pO2 57.0 mmHg (80.0-100.0) L 06/06/21 05:25 ABG HCO3 40.5 mmol/L (22-26) H* 06/06/21 05:25 ABG O2 Saturation 90.0 % (90-100) 06/06/21 05:25 ABG Base Excess 13.6 mmol/L (-2.0-2.0) H 06/06/21 05:25 Boubacar Test Pos 06/06/21 05:25 A-a Gradient 95.0 mmHg 06/06/21 05:25 FiO2 32.0 06/06/21 05:25 Blood Gas Comments Pt shon well 06/06/21 05:25 Sodium 140 mmol/L (136-145) 06/06/21 05:29 Corrected Sodium 144 mmol/L (136-145) 06/06/21 05:29 Potassium 4.2 mmol/L (3.5-5.1) 06/06/21 05:29 Chloride 102 mmol/L (98-107) 06/06/21 05:29 Carbon Dioxide 35.7 mmol/L (21-32) H 06/06/21 05:29 BUN 21 mg/dL (7-18) H 06/06/21 05:29 Creatinine 1.04 mg/dL (0.55-1.02) H 06/06/21 05:29 Est GFR (MDRD) Af Amer > 60 (>60) 06/06/21 05:29 Est GFR (MDRD) Non-Af 58 (>60) L 06/06/21 05:29 Glucose 249 mg/dL (65-99) H 06/06/21 05:29 POC Glucose (mg/dL) 208 mg/dL (65-99) H 06/05/21 11:01 Calcium 8.2 mg/dL (8.5-10.1) L 06/06/21 05:29 Corrected Calcium 9.3 mg/dL (8.5-10.1) 06/06/21 05:29 Ferritin 65 ng/mL (8-252) 06/06/21 05:29 Total Bilirubin 0.40 mg/dL (0.2-1.0) 06/06/21 05:29 AST 12 Units/L (15-37) L 06/06/21 05:29 ALT 39 Units/L (12-78) 06/06/21 05:29 Alkaline Phosphatase 69 Units/L (46-116) 06/06/21 05:29 Creatine Kinase 94 Units/L (26-192) 06/03/21 12:15 CK-MB (CK-2) 1.6 ng/mL (0-4.0) 06/03/21 12:15 CK/CKMB % Calc 1.7 % (<4) 06/03/21 12:15 Troponin I < 0.02 ng/mL (0-1.5) 06/03/21 12:15 C-Reactive Protein 2.30 mg/L (0-3.0) 06/06/21 05:29 B-Natriuretic Peptide 89.8 pg/mL (0-79) H 06/06/21 05:29 Total Protein 5.7 g/dL (6.4-8.2) L 06/06/21 05:29 Albumin 2.6 g/dL (3.4-5.0) L 06/06/21 05:29 Globulin 3.1 g/dL (2.5-4.5) 06/06/21 05:29 Albumin/Globulin Ratio 0.8 Ratio (1.1-2.1) L 06/06/21 05:29 SARS-CoV-2 (PCR) Positive (NEGATIVE) A 06/03/21 14:43 Influenza Type A (PCR) Negative (NEGATIVE) 06/03/21 14:43 Influenza Type B (PCR) Negative (NEGATIVE) 06/03/21 14:43 RSV (PCR) Negative (NEGATIVE) 06/03/21 14:43 SARS CoV-2 RNA Rapid ABHIJIT Negative (NEGATIVE) 06/03/21 12:11 - Plan (1) Pneumonia due to COVID-19 virus Status: Acute Plan: SUPPLEMENTAL OXYGEN, NS AT 50 ML/HR, LEVAQUIN 500MG IV HS, REMDESIVIR 100MG IV DAILY, ASCORBIC ACID 1500MG IV Q6H, ALBUTEROL NEBS TID, PULMICORT NEBS BID, SOLU-MEDROL 80MG IV Q8H, LOVENOX 40MG SC Q12H, LIPITOR 80MG PO HS, TESSALON PERLES 200MG PO TID, CETIRIZINE 10MG PO DAILY, IVERMECTIN, DIFLUCAN 100MG PO DAILY, PEPCID 20MG PO BID, ROBITUSSIN DM 10ML PO QID PRN, HUMULIN R SLIDING SCALE, SINGULAIR 10MG PO HS, PROTONIX 40MG PO BID, THIAMINE 200MG IV BID, AND ZINC SULFATE 220MG PO BID (2) Hypoxia Status: Acute
[2021-06-06] MEDS: ROBITUSSIN DM PO PRN (20:43)
[2021-06-06] MEDS: LIPITOR TAB 80 MG PO SCH (20:44)
[2021-06-06] MEDS: MELATONIN PO SCH (20:47)
[2021-06-06] MEDS: SINGULAIR TAB 10 MG PO SCH ×2 (20:47)
[2021-06-06] MEDS: LEVAQUIN PREMIX IV 500 MG 500 MG/100 ML BAG IV SCH (20:51)
[2021-06-06] MEDS: SNACK - Diabetic Appropriate PO SCH (20:55)
[2021-06-07] MEDS: ASCORBIC ACID INJ MULTI-DOSE VIAL 1,500 MG in NS 50 ML IV 50 ML IV SCH ×4 (02:19→20:38)
[2021-06-07] MEDS ORDERED: NS 1/2 1000 ML IV 1,000 ML IV ONE (04:30)
[2021-06-07 05:17] LABS: ABG BASE EXCESS 13.5 mmol/L (-2.0-2.0)
[2021-06-07 05:19] LABS: ABG ALLEN TEST POS; ABG HCO3 40.1 mmol/L (22-26)
[2021-06-07] MEDS: TESSALON PERLES PO SCH ×3 (05:41→21:47)
[2021-06-07] MEDS: SOLU-Medrol 40 MG VIAL IVP SCH ×3 (05:41→21:47)
[2021-06-07 06:09] LABS: BASOPHILS % (AUTO) 0 % (0.2-1.0); HEMATOCRIT 37.6 % (36.0-47.0); HEMOGLOBIN 12.6 g/dL (12.0-16.0); LYMPHOCYTES # (AUTO) 0.3 X10^3/uL (1.3-2.9); LYMPHOCYTES % (AUTO) 4.4 % (21.0-51.0); MEAN CORPUSCULAR HEMOGLOBIN 30.2 pg (27.0-34.0); MEAN CORPUSCULAR HGB CONC 33.4 g/dL (33.0-35.0); MEAN CORPUSCULAR VOLUME 90.3 fL (80.0-100.0); MEAN PLATELET VOLUME 7.9 fL (7.4-11.0); MONOCYTES # (AUTO) 0.3 x10^3/uL (0.3-0.8); MONOCYTES % (AUTO) 4.3 % (0.0-13.0); NEUTROPHILS # (AUTO) 6.5 x10^3/uL (2.2-4.8); NEUTROPHILS % (AUTO) 91.3 % (42.0-75.0); PLATELET COUNT 279 X10^3/uL (150.0-450.0); RED BLOOD COUNT 4.16 X10^6/uL (3.5-5.4); RED CELL DISTRIBUTION WIDTH 16.2 % (11.6-16.5); WHITE BLOOD COUNT 7.1 X10^3/uL (3.6-10.0)
[2021-06-07] MEDS: ACCUNEB 1.25 MG NEBULE NEB SCH ×3 (06:22→22:00)
[2021-06-07 06:50] LABS: ALANINE AMINOTRANSFERASE 37 Units/L (12-78); ALBUMIN 2.7 g/dL (3.4-5.0); ALKALINE PHOSPHATASE 65 Units/L (46-116); ASPARTATE AMINO TRANSFERASE 16 Units/L (15-37); BLOOD UREA NITROGEN 20 mg/dL (7-18); CALCIUM 8.1 mg/dL (8.5-10.1); CARBON DIOXIDE 37.4 mmol/L (21-32); CHLORIDE 103 mmol/L (98-107); COR CA(FOR HYPOALB) 9.1 mg/dL (8.5-10.1); COR NA(FOR HYPERGLY) 146 mmol/L (136-145); CREATININE 1.05 mg/dL (0.55-1.02); SODIUM 141 mmol/L (136-145); TOTAL PROTEIN 5.7 g/dL (6.4-8.2); eGFR NON BLACK RACES 57 (>60)
[2021-06-07] MEDS: NS 1/2 1000 ML IV 1,000 ML IV SCH ×3 (07:36→12:15)
[2021-06-07] MEDS: PULMICORT NEB TX 0.5 MG NEB SCH ×2 (08:10→22:00)
--- NOTE | 2021-06-07 08:20 | RAD ---
HISTORYSOBSTUDYAP [id number] is no change in appearance of the chest. Normal heart size and contour. Slight indistinct definition of right heart border consistent with right middle lobe process. Marked hyper lucency of right upper lobe, related to bullous involvement documented on previous CT chest.IMPRESSIONNo change or new abnormality identified since 1 day prior.Electronically signed by: ASHLEY WEST (Jun 07, 2021 08:17:31)
[2021-06-07 09:37] LABS: BAND NEUTROPHILS % 3 % (0-10)
[2021-06-07 09:38] LABS: GIANT PLATELET N; PLATELET MORPHOLOGY COMMENT NORMAL (NORMAL)
[2021-06-07] MEDS ORDERED: GLUCOPHAGE ONE (10:25)
[2021-06-07] MEDS ORDERED: LEXAPRO ONE (10:25)
[2021-06-07] MEDS: IVERMECTIN PO SCH (10:33)
[2021-06-07] MEDS: PROTONIX TAB 40 MG PO SCH ×2 (10:34→20:40)
[2021-06-07] MEDS: ZINC SULFATE PO SCH (10:34)
[2021-06-07] MEDS: ZyrTEC TAB 10 MG PO SCH (10:35)
[2021-06-07] MEDS: ESTRACE PO SCH (10:35)
[2021-06-07] MEDS: PEPCID TAB 20 MG PO SCH ×2 (10:35→20:40)
[2021-06-07] MEDS: SYNTHROID 25 mcg TAB PO SCH (10:35)
[2021-06-07] MEDS: LASIX PO SCH (10:36)
[2021-06-07] MEDS: K-DUR TAB 20 MEQ PO SCH (10:37)
[2021-06-07] MEDS: DIFLUCAN PO SCH (10:38)
[2021-06-07] MEDS: GLUCOPHAGE PO SCH (10:39)
[2021-06-07] MEDS: LOVENOX INJ 40 MG SYR SC SCH ×2 (10:39→20:40)
[2021-06-07] MEDS: LEXAPRO PO SCH (10:39)
[2021-06-07] MEDS: REMDESIVIR 100 MG in NS 250 ML IV 250 ML IV SCH (10:40)
[2021-06-07] MEDS: MILK OF MAGNESIA PO SCH (10:40)
[2021-06-07] MEDS: THIAMINE HCL INJ IVP SCH ×2 (10:41→20:39)
[2021-06-07] MEDS: VITAMIN D3 125 mcg (5,000 UNITS) PO SCH (10:41)
[2021-06-07] MEDS: TUSSIONEX PENNKINETIC SUSP PO PRN (11:29)
[2021-06-07 17:56] LABS: ABG BASE EXCESS 9.7 mmol/L (-2.0-2.0)
[2021-06-07 17:58] LABS: ABG HCO3 35.8 mmol/L (22-26)
[2021-06-07 18:00] LABS: ABG ALLEN TEST POSITIVE
[2021-06-07] MEDS: LEVAQUIN PREMIX IV 500 MG 500 MG/100 ML BAG IV SCH (20:38)
[2021-06-07] MEDS: COLACE CAP 100 MG PO SCH (20:40)
[2021-06-07] MEDS: MELATONIN PO SCH (20:40)
[2021-06-07] MEDS: LIPITOR TAB 80 MG PO SCH (20:40)
[2021-06-07] MEDS: SINGULAIR TAB 10 MG PO SCH (20:41)
[2021-06-07] MEDS: SNACK - Diabetic Appropriate PO SCH (20:41)
[2021-06-07] MEDS: ROBITUSSIN DM PO PRN (20:47)
[2021-06-08] MEDS: ASCORBIC ACID INJ MULTI-DOSE VIAL 1,500 MG in NS 50 ML IV 50 ML IV SCH ×3 (02:32→14:11)
[2021-06-08] MEDS: NS 1/2 1000 ML IV 1,000 ML IV SCH ×3 (02:32→14:12)
[2021-06-08] MEDS ORDERED: NS 1/2 1000 ML IV 1,000 ML IV ONE (05:34)
[2021-06-08] MEDS: SOLU-Medrol 40 MG VIAL IVP SCH ×2 (05:44→14:11)
[2021-06-08] MEDS: TESSALON PERLES PO SCH ×2 (06:02→14:11)
[2021-06-08 06:24] LABS: ABG ALLEN TEST POS; ABG HCO3 38.5 mmol/L (22-26)
[2021-06-08 06:39] LABS: BASOPHILS % (AUTO) 0 % (0.2-1.0); HEMATOCRIT 37.5 % (36.0-47.0); HEMOGLOBIN 12.6 g/dL (12.0-16.0); LYMPHOCYTES # (AUTO) 0.3 X10^3/uL (1.3-2.9); LYMPHOCYTES % (AUTO) 4.2 % (21.0-51.0); MEAN CORPUSCULAR HEMOGLOBIN 30.5 pg (27.0-34.0); MEAN CORPUSCULAR HGB CONC 33.5 g/dL (33.0-35.0); MEAN CORPUSCULAR VOLUME 91.2 fL (80.0-100.0); MEAN PLATELET VOLUME 7.7 fL (7.4-11.0); MONOCYTES # (AUTO) 0.3 x10^3/uL (0.3-0.8); MONOCYTES % (AUTO) 3.8 % (0.0-13.0); PLATELET COUNT 260 X10^3/uL (150.0-450.0); RED BLOOD COUNT 4.11 X10^6/uL (3.5-5.4); RED CELL DISTRIBUTION WIDTH 16.1 % (11.6-16.5); WHITE BLOOD COUNT 7.6 X10^3/uL (3.6-10.0)
[2021-06-08 06:53] LABS: ALANINE AMINOTRANSFERASE 46 Units/L (12-78); ALBUMIN 2.6 g/dL (3.4-5.0); ALKALINE PHOSPHATASE 61 Units/L (46-116); ASPARTATE AMINO TRANSFERASE 28 Units/L (15-37); BLOOD UREA NITROGEN 22 mg/dL (7-18); CALCIUM 7.6 mg/dL (8.5-10.1); CARBON DIOXIDE 37.7 mmol/L (21-32); CHLORIDE 100 mmol/L (98-107); COR CA(FOR HYPOALB) 8.7 mg/dL (8.5-10.1); COR NA(FOR HYPERGLY) 145 mmol/L (136-145); CREATININE 1.06 mg/dL (0.55-1.02); SODIUM 139 mmol/L (136-145); TOTAL PROTEIN 5.4 g/dL (6.4-8.2); eGFR NON BLACK RACES 57 (>60)
[2021-06-08] MEDS: ACCUNEB 1.25 MG NEBULE NEB SCH ×2 (07:03→13:45)
--- NOTE | 2021-06-08 08:07 | RAD ---
HISTORYSOBSTUDYPortable AP [id number]/2021FINDINGSContinued normal heart size. Pulmonary hyperinflation with localized hyper lucency of the right upper lobe consistent with bullous disease. No definite infiltrate or con solidation or pleural fluid identified on this AP view.IMPRESSIONNo significant change or new abnorma lity demonstrated.Electronically signed by: ASHLEY WEST (Jun 08, 2021 08:05:11)
[2021-06-08 08:12] LABS: PLATELET MORPHOLOGY COMMENT NORMAL (NORMAL)
[2021-06-08] MEDS: PULMICORT NEB TX 0.5 MG NEB SCH (09:20)
[2021-06-08] MEDS ORDERED: GLUCOPHAGE ONE (09:42)
[2021-06-08] MEDS ORDERED: LEXAPRO ONE (09:42)
[2021-06-08] MEDS: DIFLUCAN PO SCH (09:47)
[2021-06-08] MEDS: GLUCOPHAGE PO SCH (09:48)
[2021-06-08] MEDS: ESTRACE PO SCH (09:48)
[2021-06-08] MEDS: LASIX PO SCH (09:49)
[2021-06-08] MEDS: LEXAPRO PO SCH (09:49)
[2021-06-08] MEDS: IVERMECTIN PO SCH (09:49)
[2021-06-08] MEDS: K-DUR TAB 20 MEQ PO SCH (09:49)
[2021-06-08] MEDS: PEPCID TAB 20 MG PO SCH (09:50)
[2021-06-08] MEDS: MILK OF MAGNESIA PO SCH (09:50)
[2021-06-08] MEDS: LOVENOX INJ 40 MG SYR SC SCH (09:50)
[2021-06-08] MEDS: PROTONIX TAB 40 MG PO SCH (09:50)
[2021-06-08] MEDS: THIAMINE HCL INJ IVP SCH (09:51)
[2021-06-08] MEDS: ZINC SULFATE PO SCH (09:51)
[2021-06-08] MEDS: ZyrTEC TAB 10 MG PO SCH (09:51)
[2021-06-08] MEDS: SYNTHROID 25 mcg TAB PO SCH (09:51)
[2021-06-08] MEDS: VITAMIN D3 125 mcg (5,000 UNITS) PO SCH (09:51)
[2021-06-08 12:14] VITALS: BP 131/75
--- NOTE | 2021-06-08 12:41 | PCM.PROG ---
Progress Note - Progress Note for Day of Date of Exam: 06/06/21 - Subjective Subjective: MS. LOMAX WAS ADMITTED FOR TREATMENT OF COVID PNEUMONIA AND HYPOXIA. TODAY, SHE IS ALERT AND ORIENTED, LYING IN THE BED ON MORNING ROUNDS. SHE IS CURRENTLY OXYGEN VIA NASAL CANNULA AT 3 LITERS/MINUTE. SHE CONTINUES WITH COMPLAINTS OF SHORTNESS OF BREATH AND WEAKNESS TODAY. SHE DOES REPORT SLIGHT IMPROVEMENT IN SYMPTOMS TODAY. SHE DENIES A BOWEL MOVEMENT IN SEVERAL DAYS. HER SATURATIONS HAVE BEEN 90-94% THIS MORNING AND THROUGHOUT THE NIGHT. ON EXAMINATION, HEART IS REGULAR IN RATE AND RHYTHM. BILATERAL LUNGS ARE NOTED WITH DIMINISHED LUNG SOUNDS THROUGHOUT. ABDOMEN IS ROUND, SOFT, AND NON-TENDER WITH NORMAL BOWEL SOUNDS NOTED IN ALL QUADRANTS. HIS VITALS THIS MORNING ARE: 98.2-74-20-94%-129/60. LABS WERE OBTAINED. ABNORMAL LAB VALUES INCLUDE THE FOLLOWING: CARBON DIOXIDE 35.7, BUN 21, CREATININE 1.04, GLUCOSE 249, CALCIUM 8.2, AST 12, BNP 89.8, TOTAL PROTEIN 5.7, ALBUMIN 2.6. BLOOD CULTURES ARE PENDING. ABG REVEALED: PH 7.440, PC02 61, P02 57, HC03 40.5, 02 SAT 90, BASE EXCESS 13.6, A-A GRADIENT 95, FI02 32. BLOOD CULTURES ARE PENDING. A CHEST XRAY WAS OBTAINED AND REVEALED: Improved right middle lobe atelectasis or pneumonia. SHE IS CURRENTLY RECEIVING NS AT 50 ML/HR, LEVAQUIN 500MG IV HS, REMDESIVIR 100MG IV DAILY, ASCORBIC ACID 1500MG IV Q6H, ALBUTEROL NEBS TID, PULMICORT NEBS BID, SOLU-MEDROL 80MG IV Q8H, LOVENOX 40MG SC Q12H, LIPITOR 80MG PO HS, TESSALON PERLES 200MG PO TID, CETIRIZINE 10MG PO DAILY, IVERMECTIN, DIFLUCAN 100MG PO DAILY, PEPCID 20MG PO BID, ROBITUSSIN DM 10ML PO QID PRN, HUMULIN R SLIDING SCALE, SINGULAIR 10MG PO HS, PROTONIX 40MG PO BID, THIAMINE 200MG IV BID, AND ZINC SULFATE 220MG PO BID. TODAY, WE WILL ADD COLACE 100MG PO HS AND MILK OF MAGNESIA 30ML PO DAILY. WE WILL CONTINUE WITH CURRENT PLAN OF CARE TODAY AND ATTEMPT TO WEAN DOWN OXYGEN SHE TOLERATES IT. OTHERWISE, WE WILL FOLLOW UP WITH AM LABS, CHEST XRAY, ABG, AND CONTINUE TO MONITOR. TIME SPENT ON CLINICAL ASSESSMENT, REVIEWING LABS AND IMAGING, DECISION MAKING, AND DOCUMENTATION GREATER THAN 45 MINUTES. - Past Medical Family Social History Past Med/Fam/Surg Hx: No changes since H&P Allergies: Allergies No Known Drug Allergies Allergy (Verified 06/03/21 11:36) - Review of Systems ROS: No change since H&P - Vital Signs and I&O's Vital Signs: Temperature 98 F Pulse Rate [Left Brachial] 68 Pulse Rate 84 Respiratory Rate 18 Blood Pressure [Left Arm] 131/75 Blood Pressure 116/62 O2 Sat by Pulse Oximetry 95 Intake and Output: Intake & Output 06/06/21 06/07/21 06/08/21 06/09/21 11:59 11:59 11:59 11:59 Intake Total 5458 / 5458 4105 / 4105 5317 / 5317 Output Total 3 / 3 Balance 5458 / 5458 4105 / 4105 5314 / 5314 - Physical Exam Oriented: Normal Eyes: Normal Ear: Normal Nose: Normal Throat: Normal Respiratory: Generalized, Diminished Cardiovascular: Normal : Normal Auscultation: Bowel Sounds: Normal Palpation: Normal Tenderness: Normal Skin: Decreased [place] Musculoskeletal: Normal Psychiatric: Normal Mood Description: Calm Affect: Normal Speech Pattern: Clear, Appropriate - Laboratory and Diagnostics Result Diagrams: 06/08/21 06:08 06/08/21 06:08 Labs: 06/03/21 14:57 Blood Blood Culture - Preliminary 06/03/21 14:50 Blood Blood Culture - Preliminary Laboratory WBC 7.6 X10^3/uL (3.6-10.0) 06/08/21 06:08 RBC 4.11 X10^6/uL (3.5-5.4) 06/08/21 06:08 Hgb 12.6 g/dL (12.0-16.0) 06/08/21 06:08 Hct 37.5 % (36.0-47.0) 06/08/21 06:08 MCV 91.2 fL (80.0-100.0) 06/08/21 06:08 MCH 30.5 pg (27.0-34.0) 06/08/21 06:08 MCHC 33.5 g/dL (33.0-35.0) 06/08/21 06:08 RDW 16.1 % (11.6-16.5) 06/08/21 06:08 Plt Count 260 X10^3/uL (150.0-450.0) 06/08/21 06:08 Plt Count Comment Adequate (ADEQUATE) 06/08/21 06:08 MPV 7.7 fL (7.4-11.0) 06/08/21 06:08 Neut % (Auto) 92.0 % (42.0-75.0) H 06/08/21 06:08 Lymph % (Auto) 4.2 % (21.0-51.0) L 06/08/21 06:08 [place] % (Auto) 3.8 % (0.0-13.0) 06/08/21 06:08 Eos % (Auto) 0.0 % (0.9-2.9) L 06/08/21 06:08 Baso % (Auto) 0 % (0.2-1.0) L 06/08/21 06:08 Neut # (Auto) 7.0 x10^3/uL (2.2-4.8) H 06/08/21 06:08 Lymph # (Auto) 0.3 X10^3/uL (1.3-2.9) L 06/08/21 06:08 [place] # (Auto) 0.3 x10^3/uL (0.3-0.8) 06/08/21 06:08 Eos # (Auto) 0.0 x10^3/uL (0.0-0.2) 06/08/21 06:08 Baso # (Auto) 0.0 X10^3/uL (0.0-0.1) 06/08/21 06:08 Absolute Nucleated RBC 0.1 /100WBC 06/08/21 06:08 Total Counted 100 06/08/21 06:08 Neutrophils % (Manual) 89 % (39-76) H 06/08/21 06:08 Band Neutrophils % 3 % (0-10) 06/07/21 04:57 Lymphocytes % (Manual) 6 % (13-43) L 06/08/21 06:08 Monocytes % (Manual) 5 % (4-9) 06/08/21 06:08 Giant Platelets N 06/07/21 04:57 Plt Morphology Comment Normal (NORMAL) 06/08/21 06:08 RBC Morphology Normal (NORMAL) 06/08/21 06:08 D-Dimer < 0.27 ug/ml (0.0-0.57) 06/08/21 06:08 Sample Site R rad 06/08/21 06:18 ABG pH 7.430 (7.35-7.45) 06/08/21 06:18 ABG pCO2 58.0 mmHg (35.0-45.0) H* 06/08/21 06:18 ABG pO2 68.0 mmHg (80.0-100.0) L 06/08/21 06:18 ABG HCO3 38.5 mmol/L (22-26) H* 06/08/21 06:18 ABG O2 Saturation 94.0 % (90-100) 06/08/21 06:18 ABG Base Excess 12.0 mmol/L (-2.0-2.0) H 06/08/21 06:18 [place] Test Pos 06/08/21 06:18 A-a Gradient 116.0 mmHg 06/08/21 06:18 FiO2 36.0 06/08/21 06:18 Blood Gas Comments Ot [place] well mt 06/08/21 06:18 Sodium 139 mmol/L (136-145) 06/08/21 06:08 Corrected Sodium 145 mmol/L (136-145) 06/08/21 06:08 Potassium 4.1 mmol/L (3.5-5.1) 06/08/21 06:08 Chloride 100 mmol/L (98-107) 06/08/21 06:08 Carbon Dioxide 37.7 mmol/L (21-32) H 06/08/21 06:08 BUN 22 mg/dL (7-18) H 06/08/21 06:08 Creatinine 1.06 mg/dL (0.55-1.02) H 06/08/21 06:08 Est GFR (MDRD) Af Amer > 60 (>60) 06/08/21 06:08 Est GFR (MDRD) Non-Af 57 (>60) L 06/08/21 06:08 Glucose 349 mg/dL (65-99) H 06/08/21 06:08 POC Glucose (mg/dL) 208 mg/dL (65-99) H 06/05/21 11:01 Calcium 7.6 mg/dL (8.5-10.1) L 06/08/21 06:08 Corrected Calcium 8.7 mg/dL (8.5-10.1) 06/08/21 06:08 Ferritin 61 ng/mL (8-252) 06/08/21 06:08 Total Bilirubin 0.60 mg/dL (0.2-1.0) 06/08/21 06:08 AST 28 Units/L (15-37) 06/08/21 06:08 ALT 46 Units/L (12-78) 06/08/21 06:08 Alkaline Phosphatase 61 Units/L (46-116) 06/08/21 06:08 Creatine Kinase 94 Units/L (26-192) 06/03/21 12:15 CK-MB (CK-2) 1.6 ng/mL (0-4.0) 06/03/21 12:15 CK/CKMB % Calc 1.7 % (<4) 06/03/21 12:15 Troponin I < 0.02 ng/mL (0-1.5) 06/03/21 12:15 C-Reactive Protein 0.50 mg/L (0-3.0) 06/08/21 06:08 B-Natriuretic Peptide 42.1 pg/mL (0-79) 06/08/21 06:08 Total Protein 5.4 g/dL (6.4-8.2) L 06/08/21 06:08 Albumin 2.6 g/dL (3.4-5.0) L 06/08/21 06:08 Globulin 2.8 g/dL (2.5-4.5) 06/08/21 06:08 Albumin/Globulin Ratio 0.9 Ratio (1.1-2.1) L 06/08/21 06:08 SARS-CoV-2 (PCR) Positive (NEGATIVE) A 06/03/21 14:43 Influenza Type A (PCR) Negative (NEGATIVE) 06/03/21 14:43 Influenza Type B (PCR) Negative (NEGATIVE) 06/03/21 14:43 RSV (PCR) Negative (NEGATIVE) 06/03/21 14:43 SARS CoV-2 RNA Rapid ABHIJIT Negative (NEGATIVE) 06/03/21 12:11 - Plan (1) Pneumonia due to COVID-19 virus Status: Acute Plan: SUPPLEMENTAL OXYGEN, NS AT 50 ML/HR, LEVAQUIN 500MG IV HS, REMDESIVIR 100MG IV DAILY, ASCORBIC ACID 1500MG IV Q6H, ALBUTEROL NEBS TID, PULMICORT NEBS BID, SOLU-MEDROL 80MG IV Q8H, LOVENOX 40MG SC Q12H, COLACE, MILK OF MAGNESIA, LIPITOR 80MG PO HS, TESSALON PERLES 200MG PO TID, CETIRIZINE 10MG PO DAILY, IVERMECTIN, DIFLUCAN 100MG PO DAILY, PEPCID 20MG PO BID, ROBITUSSIN DM 10ML PO QID PRN, HUMULIN R SLIDING SCALE, SINGULAIR 10MG PO HS, PROTONIX 40MG PO BID, THIAMINE 200MG IV BID, AND ZINC SULFATE 220MG PO BID (2) Hypoxia Status: Acute
== END 2021-06-08 14:50 | disposition home or self-care (01) | DRG 177 ==
LOC: ER 11:31 → MED/SURG 11:31 → OBSVTOIN 17:28 → MED/SURG 18:03
PROVIDERS: ADMIT Internal Medicine; ATTEND Internal Medicine
DX: R26.89 Other abnormalities of gait and mobility; R79.89 Other specified abnormal findings of blood chemistry; R79.82 Elevated C-reactive protein (CRP); J12.82 Pneumonia due to coronavirus disease 2019; J44.9 Chronic obstructive pulmonary disease, unspecified; U07.1 COVID-19; R06.02 Shortness of breath